=== PATIENT | female | born 1965 | race Caucasian/White ===

== ENCOUNTER → 2016-08-16 19:59 | Outpatient (CLI) | payer BC | END | disposition home or self-care (01) | LOC: D.MAMMO 08-14 15:00 | DX: Z12.31 Encounter for screening mammogram for malignant neoplasm of breast (principal) ==

== ENCOUNTER → 2017-04-24 09:00 | Outpatient (CLI) | payer BC | LOC: D.MAMMO 09-26 13:30 → D.US 09-26 14:30 → D.MAMMO 03-28 13:30 | DX: R92.8 Other abnormal and inconclusive findings on diagnostic imaging of breast (principal) ==

== ENCOUNTER 2017-07-07 19:35 | Emergency (ER) | payer BC ==
[2017-07-07 19:50] LABS: BASOPHILS 0.3 % (0-2); EOSINOPHILS 2.2 % (0-7); HEMATOCRIT 41.7 % (36.0-48.0); HEMOGLOBIN 14.4 g/dL (12-16); IMMATURE GRANULOCYTES 0.2 % (0-5); LYMPHOCYTES 33.4 % (15-50); MCHC 34.5 g/dL (31.0-37.0); MCV 95.6 fL (80.0-100.0); MEAN PLATELET VOLUME 9.6 fL (7.4-10.4); MONOCYTES 6.7 % (2-11); NEUTROPHILS 57.2 % (40-80); PLATELET COUNT 248 10x3/uL (130-400); RBC 4.36 10x6/uL (4.00-5.40); RDW 12.3 % (11.5-14.5); WBC 12.2 10x3/uL (4.8-10.8)
[2017-07-07 20:04] LABS: ALBUMIN 4.1 g/dL (3.4-5.0); ALKALINE PHOSPHATASE 67 U/L (46-116); ALT (SGPT) 26 U/L (10-68); BILIRUBIN - TOTAL 0.57 mg/dL (0.2-1.3); CALC OSMOLALITY 281 mosm/kg (275-300); CALCIUM 8.9 mg/dL (8.5-10.1); CARBON DIOXIDE 28.3 mmol/L (21.0-32.0); CHLORIDE - SERUM 102 mmol/L (98-107); CREATININE - SERUM 0.9 mg/dL (0.6-1.3); GLUCOSE 110 mg/dL (74-106); POTASSIUM - SERUM 3.3 mmol/L (3.5-5.1); PROTEIN - SERUM 7.8 g/dL (6.4-8.2); SODIUM 141 mmol/L (136-145); UREA NITROGEN 13 mg/dL (7-18); eGFR NON AFRICAN AMERICAN 70 mL/min (90-120)
[2017-07-07 20:14] LABS: CHOLESTEROL, TOTAL 190 mg/dL (0-200); CKMB 1.1 U/L (0.0-3.6); CREATINE KINASE 99 UL (21-215); HDL CHOLESTEROL 47 mg/dL (32-96); LDL CHOLESTEROL 100 mg/dL (0-100); LDL-HDL RATIO 2.1 ratio (1.5-3.5); TRIGLYCERIDE 219 mg/dL (30-200)
[2017-07-07 20:15] LABS: TROPONIN-I < 0.017 ng/mL (0.000-0.060)
== END 2017-07-07 21:42 | disposition home or self-care (01) ==
LOC: D.ER 19:35
PROVIDERS: Family Medicine
DX: R07.9 Chest pain, unspecified (principal); J43.9 Emphysema, unspecified; F17.200 Nicotine dependence, unspecified, uncomplicated

== ENCOUNTER 2017-09-12 16:59 | Observation (INO) | payer BC ==
[~2017-09-12] VITALS: Ht 170.2 cm; Wt 80.0 kg
--- NOTE | ~2017-09-12 | HP ---
PATIENT: APPLE BRAR MEDICAL RECORD: [id number] ACCOUNT: [id number] LOCATION:[address] : 65 ADMISSION DATE: 09/12/17 HISTORY AND PHYSICAL EXAMINATION HISTORY OF PRESENT ILLNESS: A 52-year-old female presented to the Emergency Room with 5 days of nausea, developed chest pain pressure yesterday late afternoon, went to the Emergency Room, has a history of cardiovascular disease with prior stent placement, has had also history of reflux, had extensive GI workup within the last month with no findings. Had a similar presentation prior to her stent placement, which was done by Dr. Ochoa at [place]. History of hypertension. CURRENT MEDICATIONS: Losartan 25 mg half tablet daily, metoprolol 50 mg daily, Crestor 40 mg daily, aspirin 81 mg daily, Valium 10 mg p.r.n. insomnia, Neurontin 300 mg b.i.d., oxycodone 10 mg b.i.d. p.r.n. [id number] pain, Reglan 5 mg daily, omeprazole 20 mg daily, estrogen topical, progesterone. ALLERGIES: REPORTED PENICILLIN. REVIEW OF SYSTEMS: GENERAL: No acute change in weight. Decreased appetite with ill-feeling this past week. HEENT: No cephalgia, visual changes, tinnitus, epistaxis, or dysphagia. CARDIOVASCULAR: Atypical anginal symptoms with worsening chest pain pressure yesterday, known history of cardiovascular disease with stent placement as noted above. PULMONARY: Denies hemoptysis, denies night sweats. GASTROINTESTINAL: Denies hematemesis, hematochezia or melena. Had extensive GI workup in the past month with no significant findings. Has had nausea, progressively worse over the past week. Also history of prior cholecystectomy. MUSCULOSKELETAL: No acute changes. ENDOCRINE: Denies polyuria, polydipsia, or polyphagia. PHYSICAL EXAMINATION: VITAL SIGNS: Temp 98.1, blood pressure is 97/57, heart rate 66, respirations 17, O2 sats 98%. GENERAL: Alert and oriented, no present distress. HEENT: Head is normocephalic, atraumatic. Eyes; pupils are equally round and reactive. Ears; canals patent, TMs are intact. Nose; nares patent without drainage. Throat; no erythema, no exudates. NECK: Supple. No lymphadenopathy. HEART: Regular rate and rhythm. No S3, S4, no rub. LUNGS: Clear to auscultation bilaterally. Breathing is nonlabored. ABDOMEN: Soft, nontender. Bowel sounds positive. EXTREMITIES: Present times 4, no edema. NEUROLOGICAL: Cranial nerves II through XII intact. No focal deficits. SKIN: Warm and dry. No rash. LABORATORY DATA: CBC; white count 9.7, hemoglobin 13.1, hematocrit 38.1, platelets 227. Chemistry shows sodium of 143, potassium 3.9, chloride 108, bicarb 25.8, BUN 14, creatinine 0.8, calcium 8.9. Total bilirubin 0.29. AST 8, ALT 17, alkaline phosphatase 55. CK 84, CK-MB 1.0. Troponin less than 0.017. Albumin 3.3. EKG shows sinus rhythm, first-degree AV block, rate of 63, nonspecific intraventricular conduction delay, abnormal EKG. HISTORY AND PHYSICAL [id number] APPLE BRAR ASSESSMENT AND PLAN: Atypical anginal equivalent with persistent nausea and now with reported chest pain yesterday, asymptomatic this morning. The patient had an unusual presentation prior to her last cardiac event with resultant stent placement. Discussed case with cardiology, Dr. Rice. Agree with cardiac catheterization today. Supportive care. We will restart medications after cleared by cardiology. N.p.o. after lunch with evaluation today as discussed. Appreciate Dr. Rice. TRANSINT:[id number] Voice Confirmation ID: [id number] DOCUMENT ID: [id number] FRANCO MEIER DO at 1723 CC: [id number] DICTATION DATE: 09/13/17 0755 LINEN GRADER: 09/13/17 0934 DIS IN 09/14/17 [facility] [address] [facility] [place] [address]
--- NOTE | ~2017-09-12 | HEMODYNAMI ---
PATIENT:APPLE BRAR MEDICAL RECORD: [id number] : 65 LOCATION[facility] [id number] ADMISSION DATE: 09/12/17 Generatedon:09/13/201714:42 Patient name: APPLE BRAR Patient #: [id number] SSN: : 1965 Date of study: 09/13/2017 Page: Of Hemodynamic Procedure Report Patient Data Patient Demographics Procedure consent was obtained First Name: APPLE Gender: Female Last Name: ZONIA : 1965 Middle Initial: SEAN Age: 52 year(s) Patient #: [id number] Race: Unknown Additional ID: [id number] Contact details [address]: [address] [place] [address] State: [place] City: [place] Zip code: [address] Past Medical History Allergies Allergen Reaction Date Comments Reported Other allergy 09/13/2017 PCN Admission Admission Data Admission Date: 09/12/2017 Admission Time: 19:20 Room #: 2120 Lab Results Lab Result Date: 09/13/2017 Lab Result Time: 0:00 Biochemistry Name Units Result Min Max BUN mg/dl 14 --(--*-)-- 7 18 Creatinine mg/dl 0.8 --(-*--)-- 0.6 1.3 CBC Name Units Result Min Max Hemoglobin g/dl 13.1 -*(----)-- 13.5 17.5 Procedure Procedure Types Cath Procedure Diagnostic Procedure [facility] w/Coronaries Sedation Charges Moderate Sedation up to 30 minutes Peripheral Cath Diagnostic Procedure Abd/Extremity Aortagram Procedure Description Procedure Date Procedure Date: 09/13/2017 Procedure Start Time: 13:52 Procedure End Time: 14:41 Procedure Staff Name Function Ben Rice MD Performing Physician Alfred Velazquez RT Monitor Brandy Solomon RN Nurse Sharon Hopkins RT Scrub Procedure Data Cath Procedure Fluoroscopy Diagnostic fluoroscopy Total fluoroscopy Time: 8.3 time: 8.3 min min Diagnostic fluoroscopy Total fluoroscopy dose: 877 dose: 877 mGy mGy Contrast Material Contrast Material Type Amount (ml) Isovue 300 113 Entry Location Entry Primary Successful Side Size Upsize Upsize Entry Closure Succes sful Closure Location (Fr) 1 (Fr) 2 (Fr) Remarks Device Remarks Femoral Right 5 Fr vein Femoral Left 5 Fr Exoseal vein Femoral Left 5 Fr Exoseal artery Estimated blood loss: 5 ml Diagnostic catheters Device Type Used For End Catheter Placement MULTIPACK JL 4.0 5Fr Procedure catheter MULTIPACK 3DRC 5Fr Procedure catheter MULTIPACK Pigtail 5 Fr Procedure catheter Procedure Complications No complications Procedure Medications Medication Administration Route Dosage Oxygen NC 2 l/min Lidocaine 1% added to field 20 Heparin Flush Bag added to field 2 bags (1000units/500ml NS) 0.9% NaCl I.V. 100 ml/hr Versed I.V. 2 mg Fentanyl I.V. 100 mcg Versed I.V. 1 mg Fentanyl I.V. 50 mcg Versed I.V. 1 mg Fentanyl I.V. 50 mcg Versed I.V. 1 mg Fentanyl I.V. 50 mcg Versed I.V. 1 mg Fentanyl I.V. 50 mcg Versed I.V. 1 mg Fentanyl I.V. 50 mcg Hemodynamics Rest HGB: 13.1 (g/dl) Heart Rate: 65 (bpm) Pressure Samples Time Site Value (mmHg) Purpose Heart Use Rate(bpm) 14:24 LV 110/13,27 Snapshot 59 14:25 AO 98/62(78) Pullback 62 14:25 LV 118/17,39 Pullback 62 Gradients Valve Time Site 1 Site 2 Mean SEP/DFP Peak To Heart Use (mmHg) (sec/min) Peak Rate (mmHg) (bpm) Aortic 14:25 LV AO 12 19 20 62 118/17,39 98/62(78) Calculations Valve P-P Mean Valve Index Valve Source Name Gradient Area Flow (cm2) Aortic 20 12 20 12 Snapshots Pre Cath Intra NCS Post Cath Vital Signs Time Heart Resp SPO2 etCO2 NIBP (mmHg) Rhythm Pain Sedation Rate (ipm) (%) (mmHg) Status Level (bpm) 13:28:49 65 12 97 0 133/79(111) NSR 3 (11) , 10(A) Tolerable 13:35:54 65 13 99 29.1 133/79(111) NSR 3 (11) , 10(A) Tolerable 13:40:07 64 20 94 29.1 127/77(109) NSR 3 (11) , 10(A) Tolerable 13:44:19 63 17 93 32.1 123/74(93) NSR 3 (11) , 10(A) Tolerable 13:48:27 75 16 94 32.1 107/77(89) NSR 3 (11) , 10(A) Tolerable 13:53:30 55 14 94 27.6 117/75(98) NSR 1 (11) , 10(A) Very mild 13:57:38 59 15 93 30 114/76(91) NSR 3 (11) , 10(A) Tolerable 14:01:48 56 16 94 29.2 118/67(82) NSR 3 (11) , 10(A) Tolerable 14:06:57 60 18 97 38.9 125/66(116) NSR 0 (11) , 9(A) No pain 14:11:05 60 18 93 31.4 122/75(98) NSR 0 (11) , 9(A) No pain 14:15:13 62 16 94 31.4 102/62(81) NSR 0 (11) , 9(A) No pain 14:19:23 60 15 95 22.4 94/55(73) NSR 0 (11) , 9(A) No pain 14:23:31 61 16 93 39.6 103/51(82) NSR 0 (11) , 9(A) No pain 14:27:43 61 14 94 23.1 96/48(64) NSR 0 (11) , 9(A) No pain 14:31:50 61 14 94 40.4 97/49(77) NSR 0 (11) , 9(A) No pain 14:36:00 59 15 96 43.3 89/48(70) NSR 0 (11) , 10(A) No pain 14:40:06 57 13 93 94/55(68) NSR 0 (11) , 10(A) No pain Medications Time Medication Route Dose Verified Delivered Reason Notes Effec tiveness by by 13:27:16 Oxygen NC 2 Ben Buffie used for l/min Dwayne Solomon sales route driver 13:27:29 Lidocaine 1% added 20ml Ben Buffie used for to vial Dwayne Solomon sales route driver field 13:27:35 Heparin Flush added 2 Ben Buffie used for Bag to bags Dwayne Solomon sales route driver (1000units/500ml field NS) 13:27:44 0.9% NaCl I.V. 100 Ben Buffie Per ml/hr Dwayne Solomon RN physician 13:50:49 Versed I.V. 2 mg Ben Buffie for Dwayne Solomon RN sedation 13:50:55 Fentanyl I.V. 100 Ben Buffie for mcg Dwayne Solomon RN sedation 13:54:38 Versed I.V. 1 mg Ben Buffie for Dwayne Solomon RN sedation 13:54:42 Fentanyl I.V. 50 Ben Buffie for mcg Dwayne Solomon RN sedation 14:04:02 Fentanyl I.V. 50 Ben Buffie for mcg Dwayne Solomon RN sedation 14:04:58 Versed I.V. 1 mg Ben Buffie for Dwayne Solomon RN sedation 14:09:52 Versed I.V. 1 mg Ben Buffie for Dwayne Solomon RN sedation 14:09:55 Fentanyl I.V. 50 Ben Buffie for mcg Dwayne Solomon RN sedation 14:14:11 Versed I.V. 1 mg Ben Buffie for Dwayne Solomon RN sedation 14:14:15 Fentanyl I.V. 50 Ben Buffie for mcg Dwayne Solomon RN sedation 14:20:36 Versed I.V. 1 mg Ben Buffie for Dwayne Solomon RN sedation 14:20:40 Fentanyl I.V. 50 Ben Buffie for mcg Dwayne Solomon RN sedation Procedure Log Time Note 12:51:24 Lab Result : BUN 14 mg/dl 12:51:24 Lab Result : Hemoglobin 13.1 g/dl 12:51:24 Lab Result : Creatinine 0.8 mg/dl 12:51:52 Diagnostic Cath status Elective 12:52:02 Plan of Care:Hemodynamics will remain stable., Cardiac rhythm will remain stable., Comfort level will be maintained., Respiratory function will remain adequate., Patient/ family verbilizes understanding of procedure., Procedure tolerated without complication., Recovers from procedure without complications.. 13:14:10 Patient received from Med II to [facility] 2 Alert and oriented. Tansferred to table in Supine position. 13:14:34 Sharon BEAR(R) sent for patient. Start room use. 13:14:50 Time tracking: Regular hours (M-F 7:00 - 5:00) 13:27:16 Oxygen 2 l/min NC was administered by Brandy Solomon RN; used for procedure; 13:27:29 Lidocaine 1% 20ml vial added to field was administered by Brandy Solomon RN; used for procedure; 13:27:35 Heparin Flush Bag (1000units/500ml NS) 2 bags added to field was administered by Brandy Solomon RN; used for procedure; 13:27:44 0.9% NaCl 100 ml/hr I.V. was administered by Brandy Solomon RN; Per physician; 13:35:28 Warm blankets applied, and lucia hugger turned on for patient comfort. 13:35:29 Correct patient and procedure confirmed by team. 13:35:30 Signed procedure consent form obtained from patient. 13:35:31 ECG and BP/O2 sat monitors applied to patient. 13:35:31 Vital chart was started 13:35:33 Baseline sample Acquired. 13:35:36 Rhythm: sinus rhythm 13:35:37 Full Disclosure recording started 13:35:43 H&P Date Dictated: 09/12/2017 Within 30 days and on chart.. 13:35:44 Pre-procedure instructions explained to patient. 13:35:45 Pre-op teaching completed and patient verbalized understanding. 13:35:50 Family in waiting room. 13:35:52 Patient NPO since Midnight. 13:36:02 Patient allergic to Other allergyPCN 13:36:04 Is the patient allergic to Iodine/contrast media? No. 13:36:05 Is patient on blood thinner?No 13:36:07 Patient diabetic? No. 13:36:09 Previous problem with sedation/anesthesia? No ? 13:36:10 Snore? Yes 13:36:11 Sleep apnea? No 13:36:12 Deviated septum? No 13:36:14 Opens mouth fully? Yes 13:36:15 Sticks out tongue? Yes 13:36:18 Airway obstruction? No ? 13:36:19 Dentures? No ? 13:36:22 Pre procedure: right dorsailis pedis pulse 2+ Normal; easily identifiable; not easily obliterated 13:36:25 Patient pain scale 3/10 CHEST TIGHTNESS. 13:36:50 IV patent on arrival in left antecubital with 0.9% NaCl at [facility]. 13:36:52 Lab results completed and on chart. 13:36:55 Right groin area was prepped with chlora-prep and draped in sterile fashion 13:36:56 Alarms reviewed by R. N. 13:36:56 Sharps counted by scrub and verified by R.N. 13:36:59 Use device set Femoral Dx 13:37:00 ACIST Syringe (53694) opened to sterile field. 13:37:01 Bag Decanter (2002S) opened to sterile field. 13:37:02 Medline Cath Pack ([id number]) opened to sterile field. 13:37:03 ACIST Hand Control (40319) opened to sterile field. 13:37:04 ACIST Manifold (33728) opened to sterile field. 13:37:05 Tegaderm 4 x 4 (1626W) opened to sterile field. 13:37:07 SHEATH Prelude 5Fr 0.035 ([id number]-0C-94-035) opened to sterile field. 13:37:10 DIAGNOSTIC Multipack 5Fr catheter set ([id number]) opened to sterile field. 13:37:14 DIAGNOSTIC WIRE .035 260cm J wire ([id number]) opened to sterile field. 13:48:50 Zero performed for pressure channel P1 13:49:16 Physician arrived 13:49:16 --------ALL STOP TIME OUT------ 13:49:17 Final Timeout: patient, procedure, and site verified with staff and physician. All members of the team are in agreement. 13:49:19 Right groin site verified by team. 13:49:21 Physical assessment completed. ASA score P 2 - A patient with mild systemic disease as per Ben Rice MD. 13:49:24 Sedation plan: IV Moderate Sedation Medication:Versed, Fentanyl 13:50:49 Versed 2 mg I.V. was administered by Brandy Solomon RN; for sedation; 13:50:55 Fentanyl 100 mcg I.V. was administered by Brandy Solomon RN; for sedation; 13:52:00 Procedure started. 13:52:04 Local anesthetic to right femoral artery with Lidocaine 1% by Ben Rice MD.INITIAL ACCESS ONLY 13:54:38 Versed 1 mg I.V. was administered by Brandy Solomon RN; for sedation; 13:54:42 Fentanyl 50 mcg I.V. was administered by Brandy Solomon RN; for sedation; 13:58:08 A 5 Fr sheath was inserted into the Right Femoral vein 13:58:16 SHEATH Prelude 5Fr 0.035 ([id number]) opened to sterile field. 14:04:02 Fentanyl 50 mcg I.V. was administered by Brandy Solomon RN; for sedation; 14:04:58 Versed 1 mg I.V. was administered by Brandy Solomon RN; for sedation; 14:09:52 Versed 1 mg I.V. was administered by Brandy Solomon RN; for sedation; 14:09:55 Fentanyl 50 mcg I.V. was administered by Brandy Solomon RN; for sedation; 14:11:59 A 5 Fr sheath was inserted into the Left Femoral vein 14:12:45 DIAGNOSTIC WIRE .035 260cm J wire ([id number]) opened to sterile field. 14:13:47 UNABLE TO ACCESS RIGHT FEMORAL ARTERY. PREPPING LEFT GROIN. 14:14:00 Left groin area was prepped with chlora-prep and draped in sterile fashion 14:14:08 Local anesthetic to left femerol artery with Lidocaine 1% by Ben Rice MD.ADDITIONAL ACCESS 14:14:11 Versed 1 mg I.V. was administered by Brandy Solomon RN; for sedation; 14:14:15 Fentanyl 50 mcg I.V. was administered by Brandy Solomon RN; for sedation; 14:14:29 SHEATH Prelude 5Fr 0.035 ([id number]) opened to sterile field. 14:17:37 A 5 Fr sheath was inserted into the Left Femoral artery 14:18:48 A MULTIPACK JL 4.0 5Fr catheter was advanced over the wire and used for Procedure. 14:19:18 LCA angiography performed. 14:20:19 Catheter exchanged over wire. 14:20:36 Versed 1 mg I.V. was administered by Brandy Solomon RN; for sedation; 14:20:40 Fentanyl 50 mcg I.V. was administered by Brandy Solomon RN; for sedation; 14:20:48 A MULTIPACK 3DRC 5Fr catheter was advanced over the wire and used for Procedure. 14:21:54 RCA angiography performed. 14:23:00 Catheter exchanged over wire. 14:23:11 A MULTIPACK Pigtail 5 Fr catheter was advanced over the wire and used for Procedure. 14:24:49 LV gram done using WARE 14:24:51 Injector settings: Ml/sec: 10, Volume: 20, 14:24:52 LV hemodynamics recorded. 14:25:12 EF : 60 % 14:26:58 Abdominal Aortagram was performed. 14:30:13 Catheter removed. 14:30:21 EXOSEAL 5Fr (EX500) opened to sterile field. 14:30:34 Sheath removed intact; hemostasis achieved with Exoseal to the Left Femoral artery. 14:30:39 Sheath removed intact; hemostasis achieved with Exoseal to the Left Femoral vein. 14:32:33 Procedure ended.(Physican Out) 14:34:09 EXOSEAL 5Fr (EX500) opened to sterile field. 14:34:14 Fluoroscopy time 08.30 minutes. 14:34:17 Flurop Dose total: 877 14:34:17 Fluoroscopy dose: 877 mGy 14:34:32 Contrast amount:Isovue 300 113ml. 14:34:33 Sharps counted by scrub and verified by R.N. 14:34:35 Insertion/operative site no bleeding no hematoma. 14:34:38 Post-op/insertion site Right Femoral vein dressed using a 4 x 4 and Tegaderm. 14:34:41 Post-op/insertion site Left Femoral artery dressed using a 4 x 4 and Tegaderm. 14:34:43 Post-op/insertion site Left Femoral artery dressed using a 4 x 4 and Tegaderm. 14:34:48 Post right femoral vein:stable, soft, clean and dry 14:34:53 Post left femoral vein:stable, soft, clean and dry 14:34:58 Post left femerol artery:stable, soft, clean and dry 14:35:00 Post Procedure Pulses reassessed and unchanged 14:35:02 Post-procedure physical assessment completed. ASA score P 2 - A patient with mild systemic disease as per Ben Rice MD. 14:35:05 Post procedure rhythm: unchanged. 14:35:07 Estimated blood loss: 5 ml 14:35:08 Post procedure instruction explained to patient.Patient verbalizes understanding. 14:35:19 Patient needs reinforcement of post procedure teaching. 14:35:34 Procedure type changed to Cath procedure, Diagnostic procedure, LHC, LHC w/Coronaries, Sedation Charges, Moderate Sedation up to 30 minutes, Peripheral Cath Diagnostic Procedure, Abd/Extremity, Aortagram 14:40:07 Procedure and supply charges have been captured, reviewed, submitted and are correct. 14:40:09 Procedure Complication : No complications 14:40:12 Vital chart was stopped 14:40:13 See physician's report for complete and final results. 14:40:46 Report given to PCU. 14:40:50 Patient transfered to PCU with Stretcher. 14:41:02 Procedure ended. 14:41:02 Full Disclosure recording stopped 14:41:07 End room use (Document Last) Device Usage Item Name Manufacture Quantity Catalog Number Hospital Part Current M inimal Lot# / Charge Number Stock Stock Serial# Code ACIST Syringe Acist 1 21167 [id number] 253869 [id number] 2 0 (46252) [employer] Bag Decanter Microtek 1 2001S 144084 96904 523661 5 (2001S) Medical Inc. Medline Cath Cardinal 1 [id number] 209716 98448 587515 5 Pack Health ([id number]) ACIST Hand Acist 1 62077 096027 703367 049494 5 Control (07002) [employer] ACIST Manifold Acist 1 11990 992547 940468 760324 5 (77729) [employer] Tegaderm 4 x 4 3M 1 1626W 010153 958560 841442 5 (1626W) SHEATH Prelude Merit 3 [id number]-2Z-93-035 520723 774608 194266 5 5Fr 0.035 Medical (DZS-3Y-41-035) DIAGNOSTIC Cardinal 1 [id number] 946007 21459 854183 3 0 Multipack 5Fr Health catheter set (MC5604) DIAGNOSTIC WIRE St Neeraj 2 732276 230245 816511 290879 3 0 .035 260cm J wire (112214) MULTIPACK JL Cardinal 1 297847 5 4.0 5Fr Health catheter MULTIPACK 3DRC Cardinal 1 182583 5 5Fr catheter Health MULTIPACK Cardinal 1 654351 5 Pigtail 5 Fr Health catheter EXOSEAL 5Fr Cardinal 2 EX500 509745 766719 737800 1 0 (EX500) Health Signature Audit [place] Stage Time Signature Unsigned Intra-Procedure 09/13/2017 Alfred Velazquez 2:42:24 PM RT(R) Signatures Monitor : Alfred Velazquez RT Signature : Date : Time : [place] [id number] [facility] [place] [address]
[2017-09-12] MEDS ORDERED: TOPROL XL50 MG PO (17:13)
[2017-09-12] MEDS ORDERED: COZAAR25 MG PO (17:13)
[2017-09-12] MEDS ORDERED: BAYER CHEWABLE81 MG PO (17:13)
[2017-09-12 17:39] LABS: BASOPHILS 0.6 % (0-2); EOSINOPHILS 3.8 % (0-7); HEMATOCRIT 41.1 % (36.0-48.0); HEMOGLOBIN 14.4 g/dL (12-16); IMMATURE GRANULOCYTES 0.2 % (0-5); LYMPHOCYTES 44.1 % (15-50); MCH 33.3 pg (26.0-34.0); MCV 95.1 fL (80.0-100.0); MEAN PLATELET VOLUME 9.9 fL (7.4-10.4); MONOCYTES 8.3 % (2-11); PLATELET COUNT 254 10x3/uL (130-400); RBC 4.32 10x6/uL (4.00-5.40); RDW 12.7 % (11.5-14.5); WBC 10.6 10x3/uL (4.8-10.8)
[2017-09-12 17:40] VITALS: BP 115/65
[2017-09-12 17:53] LABS: INR 0.91 (0.85-1.17); PROTIME 11.8 SECONDS (11.6-15.0)
[2017-09-12 18:19] LABS: ALBUMIN 3.8 g/dL (3.4-5.0); ALKALINE PHOSPHATASE 64 U/L (46-116); ALT (SGPT) 19 U/L (10-68); BILIRUBIN - TOTAL 0.38 mg/dL (0.2-1.3); CALC OSMOLALITY 282 mosm/kg (275-300); CALCIUM 8.7 mg/dL (8.5-10.1); CARBON DIOXIDE 29.6 mmol/L (21.0-32.0); CHLORIDE - SERUM 105 mmol/L (98-107); CREATININE - SERUM 0.8 mg/dL (0.6-1.3); GLUCOSE 83 mg/dL (74-106); POTASSIUM - SERUM 3.5 mmol/L (3.5-5.1); PROTEIN - SERUM 7.4 g/dL (6.4-8.2); SODIUM 143 mmol/L (136-145); UREA NITROGEN 10 mg/dL (7-18); eGFR NON AFRICAN AMERICAN 80 mL/min (90-120)
[2017-09-12 18:33] LABS: CKMB 1.5 U/L (0.0-3.6); CREATINE KINASE 98 UL (21-215); PRO BNP 344 pg/mL (0-125)
[2017-09-12 18:34] LABS: TROPONIN-I < 0.017 ng/mL (0.000-0.060)
[2017-09-12 19:15] VITALS: BP 129/78
[2017-09-12 20:08] LABS: CKMB 1.4 U/L (0.0-3.6); CREATINE KINASE 101 UL (21-215)
[2017-09-12 20:15] VITALS: BP 139/91
[2017-09-12 20:18] LABS: TROPONIN-I < 0.017 ng/mL (0.000-0.060)
[2017-09-12 21:15] VITALS: BP 109/56
[2017-09-12] MEDS ORDERED: NEURONTIN 300300 MG PO (22:14)
[2017-09-12] MEDS ORDERED: CRESTOR40 MG PO (22:15)
[2017-09-12] MEDS ORDERED: OMEPRAZOLE20 M1 PO (22:15)
[2017-09-12] MEDS ORDERED: REGLAN5 MG PO (22:16)
[2017-09-12] MEDS ORDERED: ENDOCET 10-3251 TAB PO (22:17)
[2017-09-12] MEDS ORDERED: VALIUM10 MG PO (22:18)
[2017-09-12] MEDS ORDERED: PROMETRIUM100 MG PO (22:18)
[2017-09-12] MEDS ORDERED: COVARYX TABLET1 TAB TOPICAL (22:23)
[2017-09-13 00:36] VITALS: BP 87/43
[2017-09-13 01:51] LABS: CKMB 0.9 U/L (0.0-3.6); CREATINE KINASE 85 UL (21-215); TROPONIN-I < 0.017 ng/mL (0.000-0.060)
[2017-09-13 02:20] VITALS: BP 113/62; BMI 27.6
[2017-09-13 04:57] LABS: BASOPHILS 0.5 % (0-2); EOSINOPHILS 4.1 % (0-7); HEMATOCRIT 38.1 % (36.0-48.0); HEMOGLOBIN 13.1 g/dL (12-16); IMMATURE GRANULOCYTES 0.2 % (0-5); MCH 32.8 pg (26.0-34.0); MCHC 34.4 g/dL (31.0-37.0); MCV 95.3 fL (80.0-100.0); MEAN PLATELET VOLUME 9.6 fL (7.4-10.4); MONOCYTES 9.8 % (2-11); NEUTROPHILS 39.4 % (40-80); PLATELET COUNT 227 10x3/uL (130-400); RDW 12.9 % (11.5-14.5); WBC 9.7 10x3/uL (4.8-10.8)
[2017-09-13 05:31] VITALS: BP 97/57
[2017-09-13 05:40] LABS: ALBUMIN 3.3 g/dL (3.4-5.0); ALKALINE PHOSPHATASE 55 U/L (46-116); ALT (SGPT) 17 U/L (10-68); BILIRUBIN - TOTAL 0.29 mg/dL (0.2-1.3); CALCIUM 8.9 mg/dL (8.5-10.1); CARBON DIOXIDE 25.8 mmol/L (21.0-32.0); CHLORIDE - SERUM 108 mmol/L (98-107); CREATINE KINASE 84 UL (21-215); CREATININE - SERUM 0.8 mg/dL (0.6-1.3); GLUCOSE 107 mg/dL (74-106); POTASSIUM - SERUM 3.9 mmol/L (3.5-5.1); PROTEIN - SERUM 6.6 g/dL (6.4-8.2); SODIUM 143 mmol/L (136-145); eGFR NON AFRICAN AMERICAN 80 mL/min (90-120)
[2017-09-13 05:41] LABS: CALC OSMOLALITY 285 mosm/kg (275-300); TROPONIN-I < 0.017 ng/mL (0.000-0.060); UREA NITROGEN 14 mg/dL (7-18)
[2017-09-13 07:00] VITALS: BP 140/76
[2017-09-13 12:31] VITALS: BP 120/72
[2017-09-13 20:07] VITALS: BP 118/73
[2017-09-13 20:29] VITALS: Ht 170.2 cm; Wt 80.0 kg
[2017-09-14 00:34] VITALS: BP 106/57
[2017-09-14 05:19] VITALS: BP 113/45
[2017-09-14 05:56] LABS: BASOPHILS 0.3 % (0-2); EOSINOPHILS 3.2 % (0-7); HEMATOCRIT 35.3 % (36.0-48.0); IMMATURE GRANULOCYTES 0.2 % (0-5); LYMPHOCYTES 42.5 % (15-50); MCH 32.6 pg (26.0-34.0); MCV 95.9 fL (80.0-100.0); MEAN PLATELET VOLUME 9.7 fL (7.4-10.4); MONOCYTES 6.6 % (2-11); NEUTROPHILS 47.2 % (40-80); PLATELET COUNT 204 10x3/uL (130-400); RBC 3.68 10x6/uL (4.00-5.40); RDW 12.8 % (11.5-14.5); WBC 8.9 10x3/uL (4.8-10.8)
[2017-09-14 06:12] LABS: CALC OSMOLALITY 287 mosm/kg (275-300); CALCIUM 8.2 mg/dL (8.5-10.1); CARBON DIOXIDE 27.9 mmol/L (21.0-32.0); CHLORIDE - SERUM 111 mmol/L (98-107); CREATININE - SERUM 0.7 mg/dL (0.6-1.3); GLUCOSE 102 mg/dL (74-106); POTASSIUM - SERUM 3.8 mmol/L (3.5-5.1); SODIUM 145 mmol/L (136-145); UREA NITROGEN 11 mg/dL (7-18); eGFR NON AFRICAN AMERICAN > 90 mL/min (90-120)
[2017-09-14 08:18] VITALS: BP 119/75
== END 2017-09-14 11:34 | disposition home or self-care (01) ==
LOC: D.ER 16:59 → D.EDHOLD 19:20 → OBSVTIME 19:20 → D.M2 19:20
PROVIDERS: Family Medicine
DX: I25.110 Atherosclerotic heart disease of native coronary artery with unstable angina pectoris (principal); Z95.5 Presence of coronary angioplasty implant and graft; I70.0 Atherosclerosis of aorta; I25.2 Old myocardial infarction; F41.9 Anxiety disorder, unspecified; F32.9 Major depressive disorder, single episode, unspecified; I10 Essential (primary) hypertension; E78.5 Hyperlipidemia, unspecified; K21.9 Gastro-esophageal reflux disease without esophagitis; Z72.0 Tobacco use

== ENCOUNTER → 2017-12-18 18:27 | Outpatient (CLI) | payer BC ==
[2017-09-13 20:29] VITALS: BMI 27.6
[~2017-12-18 18:27] MED LIST: BAYER CHEWABLE81 MG PO; COVARYX TABLET1 TAB TOPICAL; COZAAR25 MG PO; CRESTOR40 MG PO; ENDOCET 10-3251 TAB PO; NEURONTIN 300300 MG PO; OMEPRAZOLE20 M1 PO; PROMETRIUM100 MG PO; REGLAN5 MG PO; TOPROL XL50 MG PO; VALIUM10 MG PO
== END | disposition home or self-care (01) ==
LOC: D.MAMMO 09-20 09:30
DX: R92.8 Other abnormal and inconclusive findings on diagnostic imaging of breast (principal)

== ENCOUNTER → 2017-12-25 14:32 | Outpatient (CLI) | payer BC ==
[2017-09-13 20:29] VITALS: BMI 27.6
== END | disposition home or self-care (01) ==
LOC: D.US 14:32
DX: N63.14 Unspecified lump in the right breast, lower inner quadrant (principal)

== ENCOUNTER → 2017-12-26 14:18 | Outpatient (CLI) | payer BC ==
[2017-09-13 20:29] VITALS: BMI 27.6
== END | disposition home or self-care (01) ==
LOC: D.US 14:18
DX: N63.14 Unspecified lump in the right breast, lower inner quadrant (principal)

== ENCOUNTER → 2018-01-16 11:35 | Outpatient (CLI) | payer MEDICAID ==
[2017-09-13 20:29] VITALS: BMI 27.6
== END | disposition home or self-care (01) ==
LOC: D.US 11:00
DX: I83.892 Varicose veins of left lower extremity with other complications (principal)

== ENCOUNTER → 2018-03-10 09:31 | Outpatient (CLI) | payer MEDICAID ==
[2017-09-13 20:29] VITALS: BMI 27.6
== END | disposition home or self-care (01) ==
LOC: D.US 09:31
DX: N63.12 Unspecified lump in the right breast, upper inner quadrant (principal)

== ENCOUNTER → 2018-03-31 17:15 | Outpatient (CLI) | payer MEDICAID ==
[2017-09-13 20:29] VITALS: BMI 27.6
== END | disposition home or self-care (01) ==
LOC: D.CT 17:15
DX: I71.4 Abdominal aortic aneurysm, without rupture (principal)

== ENCOUNTER → 2018-04-15 12:51 | Outpatient (CLI) | payer MEDICAID ==
[2017-09-13 20:29] VITALS: BMI 27.6
== END | disposition home or self-care (01) ==
LOC: D.US 11:00
DX: N63.12 Unspecified lump in the right breast, upper inner quadrant (principal)

== ENCOUNTER → 2019-04-17 08:57 | Outpatient (CLI) | payer MEDICAID ==
[2017-09-13 20:29] VITALS: BMI 27.6
== END | disposition home or self-care (01) ==
LOC: D.CT 04-07 11:00
PROVIDERS: ATTEND Thoracic Surgery (Cardiothoracic Vascular Surgery)
DX: I71.4 Abdominal aortic aneurysm, without rupture (principal)

== ENCOUNTER 2020-09-13 13:00 | Outpatient (CLI) | payer MEDICAID ==
[2017-09-13 20:29] VITALS: BMI 27.6
== END 2020-09-13 23:59 ==
LOC: D.MAMMO 13:00
PROVIDERS: ATTEND Family Medicine
DX: Z12.31 Encounter for screening mammogram for malignant neoplasm of breast (principal)